=== PATIENT | male | born 1990 ===

== ENCOUNTER 2017-11-12 05:55 | Day surgery (SDC) | payer OTHER ==
[2017-11-12] MEDS ORDERED: Buffered Lidocaine 0.9% SYRIN* 5 ML/SYR SYRINGE INTRADERM ONE (06:00)
[2017-11-12] MEDS ORDERED: Famotidine IV* 10 MG/ML 2 ML (20 mg) IV ONE (06:00)
[2017-11-12] MEDS ORDERED: Famotidine IV* 10 MG/ML 2 ML (20 mg) ONE (06:04)
[2017-11-12] MEDS ORDERED: Buffered Lidocaine 0.9% SYRIN* 5 ML/SYR SYRINGE ONE (06:04)
[2017-11-12] MEDS ORDERED: Midazolam* 1 MG/ML 10 ML VIAL (10 MG) ONE (07:21)
[2017-11-12] MEDS ORDERED: fentaNYL* 50 MCG/ML 2 ML VIAL (100 MCG VIAL) ONE (07:21)
[2017-11-12] MEDS ORDERED: Propofol* 10 MG/ML 20 ML BTL IV PUSH ONE (07:23)
[2017-11-12] MEDS ORDERED: Ondansetron INJ* 2 MG/ML VIAL ONE (07:23)
[2017-11-12] MEDS ORDERED: Ketorolac INJ* 30 MG/ML 1 ML VIAL ONE (07:23)
[2017-11-12] MEDS ORDERED: Bupivacaine 0.25% SDV* 30 ML ONE (07:41)
[2017-11-12] MEDS ORDERED: DiMENhydriNATE IV* 50 MG/ML VIAL IV PUSH PRN (08:14)
[2017-11-12] MEDS ORDERED: Acetaminophen TAB* 325 MG PO PRN (08:14)
[2017-11-12] MEDS ORDERED: Naloxone* 0.4 MG/ML 1 ML VIAL IV PRN (08:14)
[2017-11-12 09:36] VITALS: BP 123/76
--- NOTE | 2017-11-17 12:21 | OP ---
DATE OF OPERATION: 11/12/17 - [facility] DATE OF : 89. SURGEON: Ronald Bond MD. PROJECT COORDINATOR: MICHAELA Zeng. ANESTHESIA: Local MAC. PRE-OP DIAGNOSES: Right palm mass and right ring trigger finger. POST-OP DIAGNOSES: Right palm mass and right ring trigger finger. OPERATIVE PROCEDURES: 1. Right palm mass excision. 2. Right ring trigger finger release with A1 ava release. ESTIMATED BLOOD LOSS: 1 mL. COMPLICATIONS: None. FINDINGS: As expected. DESCRIPTION OF PROCEDURE: Alan was seen in the preoperative holding area. The correct site, side, and procedure were identified. We came back to the operating room and the arm was prepped and draped in the usual fashion. A time- out was performed. I exsanguinated with arm with Esmarch and the tourniquet was inflated to 250 mmHg. 0.25% Marcaine had previously been infiltrated around the area. I then made a Suki type incision over the palm mass. This was Dupuytren's nodule. The nodule was from dermis and excised in its entirety. It was about a cm in diameter. This completed the excision of the Dupuytren's disease in the palm. This took me down to the A1 ava. I made a longitudinal incision through the A1 ava. The release was extended distally and proximally with the tenotomy scissors. I flexed and extended the finger multiple times. There was no more catching of the tendon. We irrigated out the wounds. The skin was closed with 4-0 nylon suture. Wounds were dressed with Xeroform, 4x4s, sterile Webril, and an Frederick bandage. He was woken up and taken to the recovery room in stable condition. [id number]/[facility] [place] #: [id number] MTDD
== END 2017-11-12 09:53 ==
LOC: OR 05:55
PROVIDERS: ATTEND Orthopaedic Surgery Hand Surgery
DX: M72.0 Palmar fascial fibromatosis [Dupuytren] (principal); M65.341 Trigger finger, right ring finger
CPT/HCPCS: J1885; J2250; J2405; J2704; J3010